=== PATIENT | female | born 1975 | race Caucasian/White ===

== ENCOUNTER 2017-05-22 16:15 | Emergency (ER) | payer OTHER ==
[2017-05-22 16:40] VITALS: BP 128/89; PULSE 95; RESP 18; TEMP 97.7
[2017-05-22] MEDS ORDERED: AMOXIC-POT CLAV 875MG STARTER 2 EACH TABLET PO STA (17:13)
[2017-05-22] MEDS ORDERED: DIPH,PERTUS(ACELL)TETVAC-LF 0.5 ML VIAL IM ONE (17:13)
--- NOTE | 2017-05-22 17:19 | ED ---
Animal Bite HPI - General Chief Complaint: Animal Bite Stated Complaint: Dog Bite Time Seen by Provider: 05/22/17 17:07 Source: patient, RN notes reviewed, old records reviewed Mode of arrival: ambulatory Limitations: no limitations - History of Present Illness Initial Comments: 41-year-old female presenting to emergency Department chief complaint of a dog bite to the left lower calf. She reports that it was a acquaintance's dog. She reports that it was a beagle terrier mix. She states that the dog bit through her scrub pants and into the back of her calf. She reports that she had some bleeding at the site but the bleeding is well-controlled at this time. She does not know the status of her tetanus vaccination. She currently is trying to find out if the dog was up-to-date on rabies vaccinations. Patient denies any pain with flexion or extension of the leg. She has been able to bear weight on it.Patient denies any recent fever, chills, shortness of breath, chest pain, back pain, abdominal pain, nausea vomiting, numbness or tingling, dysuria or hematuria, constipation or diarrhea, headaches or visual changes, or any other current symptoms. - Related Data Home Medications Medication Instructions Recorded Confirmed Amitriptyline HCl 25 mg PO DAILY 09/03/16 09/06/16 Aspirin [Adult Low Dose Aspirin EC] 81 mg PO DAILY 09/03/16 09/06/16 Cetirizine HCl 10 mg PO DAILY 09/03/16 09/06/16 Dextroamphetamine/Amphetamine 25 mg PO QAM 09/03/16 09/06/16 [Adderall Xr] Diazepam [Valium] 10 mg PO TID 09/03/16 09/06/16 Dicyclomine [Bentyl] 10 mg PO QID 09/03/16 09/06/16 Diphenoxylate HCl/Atropine 1 tab PO QID PRN 09/03/16 09/06/16 [Lomotil] Gabapentin [Neurontin] 300 mg PO TID 09/03/16 09/06/16 HYDROcodone/APAP 7.5-325MG [[place] 1 tab PO TID 09/03/16 09/06/16 7.5-325] Montelukast [Singulair] 10 mg PO DAILY 09/03/16 09/06/16 Omeprazole [PriLOSEC] 20 mg PO DAILY 09/03/16 09/06/16 Previous Rx's Medication Instructions Recorded Amoxic-Pot Clav 875-125Mg 1 tab PO Q12HR #20 tablet 05/22/17 [Augmentin 875-125] Allergies Allergy/AdvReac Type Severity Reaction Status Date / Time codeine Allergy Nausea & Verified 09/03/16 12:35 Vomiting Review of Systems ROS Statement: Those systems with pertinent positive or pertinent negative responses have been documented in the HPI. ROS Other: All systems not noted in ROS Statement are negative. Past Medical History Past Medical History: GERD/Reflux Additional Past Medical History / Comment(s): pain lower back History of Any Multi-Drug Resistant Organisms: None Reported, C-DIFF Date of last positivie culture/infection: 2015 Past Surgical History: Section, Hysterectomy Past Anesthesia/Blood Transfusion Reactions: No Reported Reaction Past Psychological History: ADD/ADHD Smoking Status: Current every day smoker Past Alcohol Use History: Rare Past Drug Use History: Marijuana - Past Family History Father Family Medical History: Cancer Additional Family Medical History / Comment(s): colon General Exam - General Exam Comments Initial Comments: 41-year-old female. No acute distress. Limitations: no limitations General appearance: alert, in no apparent distress Head exam: Present: atraumatic, normocephalic, normal inspection Eye exam: Present: normal appearance, PERRL, EOMI. Absent: scleral icterus, conjunctival injection, periorbital swelling ENT exam: Present: normal exam, mucous membranes moist Neck exam: Present: normal inspection. Absent: tenderness, meningismus, lymphadenopathy Respiratory exam: Present: normal lung sounds bilaterally. Absent: respiratory distress, wheezes, rales, rhonchi, stridor Cardiovascular Exam: Present: regular rate, normal rhythm, normal heart sounds. Absent: systolic murmur, diastolic murmur, rubs, gallop, clicks GI/Abdominal exam: Present: soft, normal bowel sounds. Absent: distended, tenderness, guarding, rebound, rigid Extremities exam: Present: normal inspection, full ROM, normal capillary refill. Absent: tenderness, pedal edema, joint swelling, calf tenderness Left Knee exam: Present: normal inspection, full ROM Lower Leg exam: Present: abrasion (Patient has approximately 5 small puncture wounds consistent with where the dog bite occurred over the medial lower calf. bleeding is well controlled.). Absent: normal inspection Ankle exam: Present: normal inspection, full ROM Foot/Toe exam: Present: normal inspection, full ROM Neurovascular tendon exam: Present: no vascular compromise Gait: observed and normal Back exam: Present: normal inspection Neurological exam: Present: alert, oriented X3, CN II-XII intact Psychiatric exam: Present: normal affect, normal mood Skin exam: Present: warm, dry, intact, normal color. Absent: rash Course Vital Signs 05/22/17 16:36 Temperature 97.7 F Pulse Rate 95 Respiratory 18 Rate Blood Pressure 128/89 O2 Sat by Pulse 98 Oximetry Medical Decision Making - Medical Decision Making 41-year-old female presenting to emergency Department chief complaint of a dog bite to the left lower calf. She reports that it was a acquaintance's dog. She reports that it was a beagle terrier mix. She states that the dog bit through her scrub pants and into the back of her calf. She reports that she had some bleeding at the site but the bleeding is well-controlled at this time. She does not know the status of her tetanus vaccination. She currently is trying to find out if the dog was up-to-date on rabies vaccinations. Patient denies any pain with flexion or extension of the leg. Patient has 4 small puncture wounds to the medial posterior calf. Patient wound was thoroughly cleaned and placed with a bacitracin dressing. Patient be started on Augmentin and given a starter pack in the emergency department. She also was given an updated tetanus shot. She reports she wants rabies prophylaxis. I discussed that this is not 100% necessary, given that the dog is domesticated and could be monitored, however patient continued to want rabies prophylaxis. 8.8 cc of rabies IG was infiltrated around the site of the bite. And rabies vaccine deliverd IM in deltoid. Patient will be given a prescription for augmentin and prescription to complete rabies prophylaxis outpatiently. Return parameters discussed. Disposition Clinical Impression: Dog bite Disposition: HOME SELF-CARE Condition: Good Instructions: Animal Bite (ED) Additional Instructions: is advised to finish the radiate prescription. Take antibiotics as directed. Return if there is any alarming signs or symptoms occur. Prescriptions: Amoxic-Pot Clav 875-125Mg [Augmentin 875-125] 1 tab PO Q12HR #20 tablet Referrals: Rodney Kim MD [Primary Care Provider] - 1-2 days Time of Disposition: 18:34
[2017-05-22] MEDS ORDERED: RABIES VACCINE (PCEC) 2.5 UNIT KIT IM ONE (17:38)
[2017-05-22] MEDS ORDERED: RABIES IMMUNE GLOB 150 UNIT/ML 10 ML VIAL IM ONE (17:39)
== END 2017-05-22 19:22 | disposition home or self-care (01) ==
LOC: EC 16:15
DX: S81.852A Open bite, left lower leg, initial encounter (principal); K21.9 Gastro-esophageal reflux disease without esophagitis; F90.9 Attention-deficit hyperactivity disorder, unspecified type; F17.200 Nicotine dependence, unspecified, uncomplicated; Z79.82 Long term (current) use of aspirin; Z79.899 Other long term (current) drug therapy; Z88.5 Allergy status to narcotic agent; Z23 Encounter for immunization; W54.0XXA Bitten by dog, initial encounter
CPT/HCPCS: 90375; 90471; 90472; 90675; 90715; 96372; 99283

== ENCOUNTER 2018-05-19 08:56 | Emergency (ER) | payer OTHER ==
[2018-05-19 09:01] VITALS: RESP 18; TEMP 98
[2018-05-19] MEDS ORDERED: SODIUM CHLORIDE 0.9% 1,000 ML IV STA ×2 (09:21)
--- NOTE | 2018-05-19 09:35 | ED ---
Eye Problem HPI - General Chief complaint: Eye Problems Stated complaint: Dizziness Time Seen by Provider: 05/19/18 08:59 Source: patient, RN notes reviewed, old records reviewed Mode of arrival: EMS Limitations: no limitations - History of Present Illness Initial comments: This Patient is a 42-year-old female presents to the emergency department today chief complaint of an episode of double vision leading to bilateral vision loss that lasted approximately 5 minutes. Patient states that she was at work when this happened she was transferring a Patient. Patient is a nurse aide. Patient reports that she's had similar episodes like this in the past. 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 She had corrective surgery a few years ago. Patient states that she is supposed were glasses but normally has not had wear them over the past few months. She reports that she has no headache. She states that her were called EMS and when she was seen and evaluated by EPS her vision was slowly starting to return. She states that she has no headache at this time. No other signs of weakness. She reports that she is at her baseline. Patient states that she has no history of strokes. She denies any chest pain, shortness of breath, visual changes with this time, nausea, vomiting, fevers or chills. - Related Data Home Medications Medication Instructions Recorded Confirmed Aspirin [Adult Low Dose Aspirin EC] 81 mg PO DAILY 09/03/16 05/19/18 Cetirizine HCl 10 mg PO DAILY 09/03/16 05/19/18 Dextroamphetamine/Amphetamine 25 mg PO QAM 09/03/16 05/19/18 [Adderall Xr] Diazepam [Valium] 10 mg PO TID 09/03/16 05/19/18 Dicyclomine [Bentyl] 10 mg PO QID 09/03/16 05/19/18 Diphenoxylate HCl/Atropine 1 tab PO QID PRN 09/03/16 05/19/18 [Lomotil] Gabapentin [Neurontin] 300 mg PO TID 09/03/16 05/19/18 Montelukast [Singulair] 10 mg PO HS 09/03/16 05/19/18 Omeprazole [PriLOSEC] 20 mg PO BID 09/03/16 05/19/18 Amitriptyline HCl [Elavil] 25 mg PO HS 05/19/18 05/19/18 HYDROcodone/APAP 5-325MG [[place] 1 tab PO Q6H PRN 05/19/18 05/19/18 5-325] Ibuprofen [Motrin] 600 mg PO TID PRN 05/19/18 05/19/18 Allergies Allergy/AdvReac Type Severity Reaction Status Date / Time codeine Allergy Nausea & Verified 05/19/18 09:54 Vomiting Review of Systems ROS Statement: Those systems with pertinent positive or pertinent negative responses have been documented in the HPI. ROS Other: All systems not noted in ROS Statement are negative. Past Medical History Past Medical History: GERD/Reflux Additional Past Medical History / Comment(s): pain lower back History of Any Multi-Drug Resistant Organisms: C-DIFF Date of last positivie culture/infection: 2015 Past Surgical History: Section, Hysterectomy Past Anesthesia/Blood Transfusion Reactions: No Reported Reaction Past Psychological History: ADD/ADHD Smoking Status: Current every day smoker Past Alcohol Use History: Occasional Past Drug Use History: Marijuana - Past Family History Father Family Medical History: Cancer Additional Family Medical History / Comment(s): colon General Exam - General Exam Comments Initial Comments: 42-year-old female. Alert and oriented. Appears in no acute distress. Limitations: no limitations General appearance: alert, in no apparent distress Head exam: Present: atraumatic, normocephalic, normal inspection Eye exam: Present: normal appearance, PERRL, EOMI, nystagmus (Patient does have some horizontal diagnosis left lateral gaze.). Absent: scleral icterus, conjunctival injection, periorbital swelling ENT exam: Present: normal exam, normal oropharynx, mucous membranes moist Neck exam: Present: normal inspection, full ROM. Absent: tenderness, meningismus, lymphadenopathy Respiratory exam: Present: normal lung sounds bilaterally. Absent: respiratory distress, wheezes, rales, rhonchi, stridor Cardiovascular Exam: Present: regular rate, normal rhythm, normal heart sounds. Absent: systolic murmur, diastolic murmur, rubs, gallop, clicks GI/Abdominal exam: Present: soft, normal bowel sounds. Absent: distended, tenderness, guarding, rebound, rigid Extremities exam: Present: normal inspection, full ROM, normal capillary refill. Absent: tenderness, pedal edema, joint swelling, calf tenderness Back exam: Present: normal inspection Neurological exam: Present: alert, oriented X3, CN II-XII intact Expanded Patient oriented to: Present: person, place, time Speech: Present: fluid speech Cranial nerves: EOM's Intact: Abnormal Left (evidence of bilateral nystagmus on Left and Right lateral gaze. ), Nystagmus: Abnormal Right, Facial Sensation: Normal Cerebellar function: Finger to Nose: Normal Upper motor neuron: Pronator Drift: Normal Sensory exam: Upper Extremity Light Touch: Normal, Lower Extremity Light Touch: Normal Motor strength exam: RUE: 5, LUE: 5, RLE: 5, LLE: 5 Eye Response: (4) open spontaneously Motor Response: (6) obeys commands Verbal Response: (5) oriented Maik Total: 15 Psychiatric exam: Present: normal affect, normal mood Skin exam: Present: warm, dry, intact, normal color. Absent: rash Course Vital Signs 05/19/18 05/19/18 08:57 11:53 Temperature 98.0 F Pulse Rate 84 65 Respiratory 18 18 Rate Blood Pressure 114/71 124/80 O2 Sat by Pulse 98 97 Oximetry - Reevaluation(s) Reevaluation #1: 05/19/18 11:49 Oscar is quite adamant about leaving. Patient states that she understands the risk of stroke and severe neurological deficits. She will be signing against medical translator. Medical Decision Making - Medical Decision Making 42-year-old female presents emergency department today with an episode of complete blindness in both of her eyes when she was at work. It lasted 5 minutes and slowly returned. She right ear via EMS. She states upon arriving here she felt so much better. She denied any specific headache chest pain first breath. No history of stroke. TIA protocol was completed. Patient given aspirin and blood work was obtained. Blood work was negative for any acute or maladies. EKG shows no significant changes. CT brain was completed and negative for any acute changes. No evidence of stroke. At this time I discussed that like to admit the Patient for TIA evaluation. Further evaluation by her neurologist Dr. Carter and campus executive director. She states that her vision is returning that she feels well. She states that she wants to be discharged home. This time Patient will sign out AMA. - Lab Data Result diagrams: 05/19/18 10:11 05/19/18 10:11 Lab Results 05/19/18 05/19/18 05/19/18 Range/Units 10:11 10:11 10:11 WBC 8.3 (3.8-10.6) k/uL RBC 3.75 L (3.80-5.40) m/uL Hgb 12.0 (11.4-16.0) gm/dL Hct 36.9 (34.0-46.0) % MCV 98.4 (80.0-100.0) fL MCH 32.0 (25.0-35.0) pg MCHC 32.5 (31.0-37.0) g/dL RDW 13.4 (11.5-15.5) % Plt Count 326 (150-450) k/uL Neutrophils % 76 % Lymphocytes % 16 % Monocytes % 5 % Eosinophils % 2 % Basophils % 0 % Neutrophils # 6.3 (1.3-7.7) k/uL Lymphocytes # 1.3 (1.0-4.8) k/uL Monocytes # 0.4 (0-1.0) k/uL Eosinophils # 0.2 (0-0.7) k/uL Basophils # 0.0 (0-0.2) k/uL PT (9.0-12.0) sec INR (<1.2) APTT (22.0-30.0) sec Sodium 138 (137-145) mmol/L Potassium 4.2 (3.5-5.1) mmol/L Chloride 108 H (98-107) mmol/L Carbon Dioxide 25 (22-30) mmol/L Anion Gap 5 mmol/L BUN 10 (7-17) mg/dL Creatinine 0.59 (0.52-1.04) mg/dL Est GFR (CKD-EPI)AfAm >90 (>60 ml/min/1.73 sqM) Est GFR (CKD-EPI)NonAf >90 (>60 ml/min/1.73 sqM) Glucose 104 H (74-99) mg/dL Calcium 8.4 (8.4-10.2) mg/dL Total Bilirubin 0.2 (0.2-1.3) mg/dL AST 77 H (14-36) U/L ALT 85 H (9-52) U/L Alkaline Phosphatase 75 (38-126) U/L Total Creatine Kinase 106 (30-135) U/L CK-MB (CK-2) 2.0 (0.0-2.4) ng/mL CK-MB (CK-2) Rel Index 1.9 Troponin I <0.012 (0.000-0.034) ng/mL Total Protein 5.5 L (6.3-8.2) g/dL Albumin 3.4 L (3.5-5.0) g/dL Urine Color Urine Appearance (Clear) Urine pH (5.0-8.0) Ur Specific [place] (1.001-1.035) Urine Protein (Negative) Urine Glucose (UA) (Negative) Urine Ketones (Negative) Urine Blood (Negative) Urine Nitrite (Negative) Urine Bilirubin (Negative) Urine Urobilinogen (<2.0) mg/dL Ur Leukocyte Esterase (Negative) 05/19/18 05/19/18 Range/Units 10:11 10:11 WBC (3.8-10.6) k/uL RBC (3.80-5.40) m/uL Hgb (11.4-16.0) gm/dL Hct (34.0-46.0) % MCV (80.0-100.0) fL MCH (25.0-35.0) pg MCHC (31.0-37.0) g/dL RDW (11.5-15.5) % Plt Count (150-450) k/uL Neutrophils % % Lymphocytes % % Monocytes % % Eosinophils % % Basophils % % Neutrophils # (1.3-7.7) k/uL Lymphocytes # (1.0-4.8) k/uL Monocytes # (0-1.0) k/uL Eosinophils # (0-0.7) k/uL Basophils # (0-0.2) k/uL PT 9.5 (9.0-12.0) sec INR 1.0 (<1.2) APTT 25.0 (22.0-30.0) sec Sodium (137-145) mmol/L Potassium (3.5-5.1) mmol/L Chloride (98-107) mmol/L Carbon Dioxide (22-30) mmol/L Anion Gap mmol/L BUN (7-17) mg/dL Creatinine (0.52-1.04) mg/dL Est GFR (CKD-EPI)AfAm (>60 ml/min/1.73 sqM) Est GFR (CKD-EPI)NonAf (>60 ml/min/1.73 sqM) Glucose (74-99) mg/dL Calcium (8.4-10.2) mg/dL Total Bilirubin (0.2-1.3) mg/dL AST (14-36) U/L ALT (9-52) U/L Alkaline Phosphatase (38-126) U/L Total Creatine Kinase (30-135) U/L CK-MB (CK-2) (0.0-2.4) ng/mL CK-MB (CK-2) Rel Index Troponin I (0.000-0.034) ng/mL Total Protein (6.3-8.2) g/dL Albumin (3.5-5.0) g/dL Urine Color Colorless Urine Appearance Clear (Clear) Urine pH 5.5 (5.0-8.0) Ur Specific [place] 1.003 (1.001-1.035) Urine Protein Negative (Negative) Urine Glucose (UA) Negative (Negative) Urine Ketones Negative (Negative) Urine Blood Negative (Negative) Urine Nitrite Negative (Negative) Urine Bilirubin Negative (Negative) Urine Urobilinogen <2.0 (<2.0) mg/dL Ur Leukocyte Esterase Negative (Negative) 05/19/18 09:38 EKG performed at 936 shows normal sinus rhythm. Normal EKG. Retrograde 70 bpm. Pulse 152 ms. QRS ration 84 ms. QT QTc is 46/438 ms. - Radiology Data Radiology results: report reviewed CT of the brain is negative for any acute intracranial hemorrhage, mass effect or midline shift. No acute injury cranial process. Chest x-rays negative for any acute cardiopulmonary process. No significant change from prior. Disposition Clinical Impression: Blindness of both eyes Disposition: Left Against Medical Advice Condition: Stable Is patient prescribed a controlled substance at d/c from ED?: No When asked, does pt state using other controlled substances?: No If prescribed controlled substance>3 days was MAPS reviewed?: No If opioid is for acute pain is fill amount 7 days or less?: No If Rx opioid, was Start Talking consent form obtained?: No Referrals: Rodney Kim MD [Primary Care Provider] - 1-2 days Time of Disposition: 11:49
--- NOTE | 2018-05-19 09:57 | CT ---
EXAMINATION TYPE: CT brain wo con DATE OF EXAM: 05/19/2018 COMPARISON: MRI brain dated 10/02/[address] brain dated 09/24/2012 HISTORY: Patient complains of syncopal episode and dizziness. CT DLP: 1017 mGycm. Automated Exposure Control for Dose Reduction was Utilized. TECHNIQUE: CT scan of the head is performed without contrast. FINDINGS: There is no acute intracranial hemorrhage, mass effect, or midline shift identified. No s uspicious extra-axial fluid collection. Normal variant cavum septum pellucidum is seen. The ventricle s and sulci are within normal limits in size. The globes are intact and the visualized sinuses are c lear. Mastoid air cells are well aerated. IMPRESSION: No acute intracranial hemorrhage, mass effect, or midline shift is seen. No acute intrac ranial process.
--- NOTE | 2018-05-19 09:57 | XR ---
EXAMINATION TYPE: XR chest 2V DATE OF EXAM: 05/19/2018 COMPARISON: Chest x-ray December 04, 2013 HISTORY: Altered mental status and weakness. TECHNIQUE: Frontal and lateral views of the chest are obtained. FINDINGS: There is no focal air space opacity, pleural effusion, or pneumothorax seen. The cardiac silhouette size is within normal limits. The osseous structures are intact. IMPRESSION: No acute cardiopulmonary process. No significant change from prior.
[2018-05-19] MEDS ORDERED: ASPIRIN 81 MG PO STA (10:01)
[2018-05-19 10:25] LABS: Basophils % (A) 0 %; Eosinophils # (A) 0.2 k/uL (0-0.7); Eosinophils % (A) 2 %; HCT 36.9 % (34.0-46.0); Lymphocytes # (A) 1.3 k/uL (1.0-4.8); Lymphocytes % (A) 16 %; MCHC 32.5 g/dL (31.0-37.0); MCV 98.4 fL (80.0-100.0); Mean Platelet Volume 7.2; Monocytes # (A) 0.4 k/uL (0-1.0); Monocytes % (A) 5 %; Neutrophils # (A) 6.3 k/uL (1.3-7.7); Neutrophils % (A) 76 %; Platelet Count 326 k/uL (150-450); RBC 3.75 m/uL (3.80-5.40); RDW 13.4 % (11.5-15.5); WBC 8.3 k/uL (3.8-10.6)
[2018-05-19 10:31] LABS: Appearance,Urine Clear (Clear); Bilirubin,Urine Negative (Negative); Blood,Urine Negative (Negative); Color,Urine Colorless; Glucose,Urine (UA) Negative (Negative); Ketones,Urine Negative (Negative); Leukocyte Esterase,Urine Negative (Negative); Nitrite,Urine Negative (Negative); PH, Urine 5.5 (5.0-8.0); Protein,Urine Negative (Negative); Specific Gravity,Urine 1.003 (1.001-1.035); Urobilinogen,Urine <2.0 mg/dL (<2.0)
[2018-05-19 10:33] LABS: ALT 85 U/L (9-52); AST 77 U/L (14-36); Albumin 3.4 g/dL (3.5-5.0); Alkaline Phosphatase 75 U/L (38-126); Anion Gap 5 mmol/L; Blood Urea Nitrogen 10 mg/dL (7-17); Calcium 8.4 mg/dL (8.4-10.2); Carbon Dioxide 25 mmol/L (22-30); Chloride 108 mmol/L (98-107); Glucose 104 mg/dL (74-99); Potassium 4.2 mmol/L (3.5-5.1); Prothrombin Time 9.5 sec (9.0-12.0); Sodium 138 mmol/L (137-145); Total Bilirubin 0.2 mg/dL (0.2-1.3); Total Protein 5.5 g/dL (6.3-8.2)
[2018-05-19 11:10] LABS: Creatine Kinase 106 U/L (30-135)
[2018-05-19 11:23] LABS: Troponin I <0.012 ng/mL (0.000-0.034)
[2018-05-19 11:55] VITALS: BP 124/80; PULSE 65
== END 2018-05-19 11:53 | disposition left against medical advice (07) ==
LOC: EC 08:56
DX: H54.3 Unqualified visual loss, both eyes (principal); H55.09 Other forms of nystagmus; K21.9 Gastro-esophageal reflux disease without esophagitis; F90.9 Attention-deficit hyperactivity disorder, unspecified type; F17.200 Nicotine dependence, unspecified, uncomplicated; Z79.82 Long term (current) use of aspirin; Z79.899 Other long term (current) drug therapy; Z88.5 Allergy status to narcotic agent
CPT/HCPCS: 36415; 70450; 71046; 80053; 81003; 82550; 82553; 84484; 85025; 85610; 85730; 93005; 96360; 96361; 99285

== ENCOUNTER 2023-06-30 06:57 | Emergency (ER) | payer OTHER ==
[2023-06-30] MEDS ORDERED: diphenhydrAMINE 50 MG/ML 1 ML VIAL IVP STA (07:17)
[2023-06-30] MEDS ORDERED: SODIUM CHLORIDE 0.9% 1,000 ML IV STA (07:17)
[2023-06-30] MEDS ORDERED: SODIUM CHLORIDE 0.9% 500 ML 500 ML IV STA (07:17)
[2023-06-30] MEDS ORDERED: METOCLOPRAMIDE 5 MG/ML 2 ML VIAL IVP STA (07:17)
[2023-06-30] MEDS ORDERED: KETOROLAC 15 MG/ML 1 ML VIAL IVP STA ×2 (07:18→10:21)
--- NOTE | 2023-06-30 07:20 | ED ---
General Adult HPI - General Chief complaint: Nausea/Vomiting/Diarrhea Stated complaint: Vomiting, Cough Time Seen by Provider: 06/30/23 07:05 Source: patient, RN notes reviewed Mode of arrival: ambulatory Limitations: no limitations - History of Present Illness Initial comments: 47 year old female presents emergency apartment chief complaint of nausea vo miting, cough congestion. Patient states that symptoms started on Tuesday initially with nausea and vomiting. Patient states that slowly progress states that she's been waking up every morning with some her symptoms. Patient states that she does have cough that seems to be associated. She does with hot and cold flashes but denies any reported fever. Patient denies chest pain, shortness breath, flank pain, back pain or any dysuria. Patient's had no sick contacts patient offers no other associated symptoms. - Related Data Home Medications Medication Instructions Recorded Confirmed Dicyclomine [Bentyl] 10 - 20 mg PO DIRECTED PRN 09/03/16 06/30/23 Diphenoxylate HCl/Atropine 1 tab PO DIRECTED PRN 09/03/16 06/30/23 [Lomotil] Previous Rx's Medication Instructions Recorded Ondansetron Odt [Zofran Odt] 4 mg PO Q8HR PRN #10 tab 06/30/23 Allergies Allergy/AdvReac Type Severity Reaction Status Date / Time codeine Allergy Nausea & Verified 06/30/23 09:39 Vomiting Review of Systems ROS Statement: Those systems with pertinent positive or pertinent negative responses have been documented in the HPI. ROS Other: All systems not noted in ROS Statement are negative. Past Medical History Past Medical History: GERD/Reflux Additional Past Medical History / Comment(s): pain lower back History of Any Multi-Drug Resistant Organisms: C-DIFF Date of last positivie culture/infection: 2015 Past Surgical History: Section, Hysterectomy Past Anesthesia/Blood Transfusion Reactions: No Reported Reaction Past Psychological History: ADD/ADHD Smoking Status: Current every day smoker Past Alcohol Use History: Occasional Past Drug Use History: Marijuana - Past Family History Father Family Medical History: Cancer Additional Family Medical History / Comment(s): colon General Exam Limitations: no limitations General appearance: alert, in no apparent distress Head exam: Present: atraumatic, normocephalic, normal inspection Eye exam: Present: normal appearance, PERRL, EOMI. Absent: scleral icterus, conjunctival injection, periorbital swelling ENT exam: Present: normal exam, normal oropharynx, mucous membranes moist Neck exam: Present: normal inspection, full ROM. Absent: tenderness, meningismus, lymphadenopathy Respiratory exam: Present: normal lung sounds bilaterally. Absent: respiratory distress, wheezes, rales, rhonchi, stridor Cardiovascular Exam: Present: regular rate, normal rhythm, normal heart sounds. Absent: systolic murmur, diastolic murmur, rubs, gallop, clicks GI/Abdominal exam: Present: soft, normal bowel sounds. Absent: distended, tenderness, guarding, rebound, rigid Course Vital Signs 06/30/23 06:59 Temperature 97.7 F Pulse Rate 71 Respiratory 18 Rate Blood Pressure 175/108 O2 Sat by Pulse 98 Oximetry Medical Decision Making - Medical Decision Making Was pt. sent in by a medical professional or institution (, PA, HUMAN RESOURCES HR GENERALIST, urgent care, hospital, or usp...) When possible be specific @ -No Did you speak to anyone other than the patient for history (EMS, parent, family, police, friend...)? What history was obtained from this source @ -No Did you review nursing and triage notes (agree or disagree)? Why? @ -I reviewed and agree with nursing and triage notes Were old charts reviewed (outside hosp., previous admission, EMS record, old EKG, old radiological studies, urgent care reports/EKG's, usp records)? Report findings @ -No old charts were reviewed Differential Diagnosis (chest pain, altered mental status, abdominal pain women, abdominal pain men, vaginal bleeding, weakness, fever, dyspnea, syncope, headache, dizziness, GI bleed, back pain, seizure, CVA, palpatations, mental health, musculoskeletal)? @ -Differential Abdominal Pain Women: Appendicitis, Cholecystitis, diverticulosis, ischemic bowel, pancreatitis, hepatitis, UTI, gastroenteritis, AAA, incarcerated hernia, bowel obstruction, constipation, inflammatory bowel, hepatitis, peptic ulcer disease, splenic infarction, perforated viscus, vulvitis, ovarian torsion, PID, kidney stone, placenta abruption, this is not meant to be an all-inclusive list EKG interpreted by me (3pts min.). @ -None X-rays interpreted by me (1pt min.). @ -None done CT interpreted by me (1pt min.). @ -None done U/S interpreted by me (1pt. min.). @ -None done What testing was considered but not performed or refused? (CT, X-rays, U/S, labs)? Why? @ -None What meds were considered but not given or refused? Why? @ -None Did you discuss the management of the patient with other professionals (professionals i.e. , PA, HUMAN RESOURCES HR GENERALIST, lab, RT, psych nurse, social insurance adviser, horse shoer, teacher, veterans service officer, case briefer)? Give summary @ -No Was smoking cessation discussed for >3mins.? @ -No Was critical care preformed (if so, how long)? @ -No Were there social determinants of health that impacted care today? How? (Homelessness, low income, unemployed, alcoholism, drug addiction, transportation, low edu. Level, literacy, decrease access to med. care, halfway, re hab)? @ -No Was there de-escalation of care discussed even if they declined (Discuss DNR or withdrawal of care, Hospice)? DNR status @ -No What co-morbidities impacted this encounter? (DM, HTN, Smoking, COPD, CAD, Cancer, CVA, ARF, Chemo, Hep., AIDS, mental health diagnosis, sleep apnea, morbid obesity)? @ -None Was patient admitted / discharged? Hospital course, mention meds given and route, prescriptions, significant lab abnormalities, going to OR and other pertinent info. @ -Discharge patient was hydrated, ultrasound is unremarkable. Patient's symptoms related to viral illness patient we discharged in stable condition return parameters were discussed. Undiagnosed new problem with uncertain prognosis? @ -[No] Drug Therapy requiring intensive monitoring for toxicity (Heparin, Nitro, Insulin, Cardizem)? @ -[No] Were any procedures done? @ -[No] Diagnosis/symptom? @ -[Gastroenteritis] Acute, or Chronic, or Acute on Chronic? @ -[Acute] Uncomplicated (without systemic symptoms) or Complicated (systemic symptoms)? @ -[Uncomplicated] Side effects of treatment? @ -[No] Exacerbation, Progression, or Severe Exacerbation? @ -[No] Poses a threat to life or bodily function? How? (Chest pain, USA, [place], pneumonia, PE, COPD, DKA, ARF, appy, cholecystitis, CVA, Diverticulitis, Homicidal, Suicidal, threat to staff... and all critical care pts) @ -[No] - Lab Data Result diagrams: 06/30/23 07:20 06/30/23 07:20 Lab Results 06/30/23 06/30/23 06/30/23 Range/Units 07:20 07:20 07:42 WBC 10.7 H (3.8-10.6) k/uL RBC 4.57 (3.80-5.40) m/uL Hgb 15.4 (11.4-16.0) gm/dL Hct 44.7 (34.0-46.0) % MCV 97.9 (80.0-100.0) fL MCH 33.8 (25.0-35.0) pg MCHC 34.6 (31.0-37.0) g/dL RDW 12.9 (11.5-15.5) % Plt Count 324 (150-450) k/uL MPV 8.1 Neutrophils % 83 % Lymphocytes % 10 % Monocytes % 6 % Eosinophils % 0 % Basophils % 0 % Neutrophils # 8.8 H (1.3-7.7) k/uL Lymphocytes # 1.0 (1.0-4.8) k/uL Monocytes # 0.7 (0-1.0) k/uL Eosinophils # 0.0 (0-0.7) k/uL Basophils # 0.0 (0-0.2) k/uL Sodium 139 (137-145) mmol/L Potassium 3.6 (3.5-5.1) mmol/L Chloride 106 (98-107) mmol/L Carbon Dioxide 23 (22-30) mmol/L Anion Gap 10 mmol/L BUN 3 L (7-17) mg/dL Creatinine 0.47 L (0.52-1.04) mg/dL Est GFR (CKD-EPI)AfAm >90 (>60 ml/min/1.73 sqM) Est GFR (CKD-EPI)NonAf >90 (>60 ml/min/1.73 sqM) Glucose 103 H (74-99) mg/dL Calcium 8.9 (8.4-10.2) mg/dL Total Bilirubin 0.5 (0.2-1.3) mg/dL AST 30 (14-36) U/L ALT 15 (4-34) U/L Alkaline Phosphatase 71 (38-126) U/L Total Protein 7.8 (6.3-8.2) g/dL Albumin 4.4 (3.5-5.0) g/dL Lipase 53 (23-300) U/L Urine Color Urine Appearance (Clear) Urine pH (5.0-8.0) Ur Specific [place] (1.001-1.035) Urine Protein (Negative) Urine Glucose (UA) (Negative) Urine Ketones (Negative) Urine Blood (Negative) Urine Nitrite (Negative) Urine Bilirubin (Negative) Urine Urobilinogen (<2.0) mg/dL Ur Leukocyte Esterase (Negative) Urine RBC (0-5) /hpf Urine WBC (0-5) /hpf Ur Squamous Epith Cells (0-4) /hpf Amorphous Sediment (None) /hpf Urine Bacteria (None) /hpf Urine Mucus (None) /hpf Influenza Type A (PCR) Not Detected (Not Detectd) Influenza Type B (PCR) Not Detected (Not Detectd) RSV (PCR) Not Detected (Not Detectd) SARS-CoV-2 (PCR) Not Detected (Not Detectd) 06/30/23 Range/Units 08:40 WBC (3.8-10.6) k/uL RBC (3.80-5.40) m/uL Hgb (11.4-16.0) gm/dL Hct (34.0-46.0) % MCV (80.0-100.0) fL MCH (25.0-35.0) pg MCHC (31.0-37.0) g/dL RDW (11.5-15.5) % Plt Count (150-450) k/uL MPV Neutrophils % % Lymphocytes % % Monocytes % % Eosinophils % % Basophils % % Neutrophils # (1.3-7.7) k/uL Lymphocytes # (1.0-4.8) k/uL Monocytes # (0-1.0) k/uL Eosinophils # (0-0.7) k/uL Basophils # (0-0.2) k/uL Sodium (137-145) mmol/L Potassium (3.5-5.1) mmol/L Chloride (98-107) mmol/L Carbon Dioxide (22-30) mmol/L Anion Gap mmol/L BUN (7-17) mg/dL Creatinine (0.52-1.04) mg/dL Est GFR (CKD-EPI)AfAm (>60 ml/min/1.73 sqM) Est GFR (CKD-EPI)NonAf (>60 ml/min/1.73 sqM) Glucose (74-99) mg/dL Calcium (8.4-10.2) mg/dL Total Bilirubin (0.2-1.3) mg/dL AST (14-36) U/L ALT (4-34) U/L Alkaline Phosphatase (38-126) U/L Total Protein (6.3-8.2) g/dL Albumin (3.5-5.0) g/dL Lipase (23-300) U/L Urine Color Colorless Urine Appearance Clear (Clear) Urine pH 6.5 (5.0-8.0) Ur Specific [place] 1.009 (1.001-1.035) Urine Protein Trace H (Negative) Urine Glucose (UA) Negative (Negative) Urine Ketones Negative (Negative) Urine Blood Small H (Negative) Urine Nitrite Negative (Negative) Urine Bilirubin Negative (Negative) Urine Urobilinogen <2.0 (<2.0) mg/dL Ur Leukocyte Esterase Negative (Negative) Urine RBC 4 (0-5) /hpf Urine WBC 1 (0-5) /hpf Ur Squamous Epith Cells 3 (0-4) /hpf Amorphous Sediment Rare H (None) /hpf Urine Bacteria Rare H (None) /hpf Urine Mucus Rare H (None) /hpf Influenza Type A (PCR) (Not Detectd) Influenza Type B (PCR) (Not Detectd) RSV (PCR) (Not Detectd) SARS-CoV-2 (PCR) (Not Detectd) Disposition Clinical Impression: Gastroenteritis Disposition: HOME SELF-CARE Condition: Stable Instructions (If sedation given, give patient instructions): Acute Nausea and Vomiting (ED) Additional Instructions: Please return to the Emergency Department if symptoms worsen or any other concerns. Prescriptions: Ondansetron Odt [Zofran Odt] 4 mg PO Q8HR PRN #10 tab PRN Reason: Nausea Is patient prescribed a controlled substance at d/c from ED?: No Referrals: Nilam Perdue FNPBC [Primary Care Provider] - 1-2 days Time of Disposition: 10:17
[2023-06-30 08:01] LABS: Basophils % (A) 0 %; Eosinophils % (A) 0 %; HCT 44.7 % (34.0-46.0); HGB 15.4 gm/dL (11.4-16.0); Lymphocytes % (A) 10 %; MCH 33.8 pg (25.0-35.0); MCHC 34.6 g/dL (31.0-37.0); MCV 97.9 fL (80.0-100.0); Mean Platelet Volume 8.1; Monocytes # (A) 0.7 k/uL (0-1.0); Monocytes % (A) 6 %; Neutrophils # (A) 8.8 k/uL (1.3-7.7); Neutrophils % (A) 83 %; Platelet Count 324 k/uL (150-450); RBC 4.57 m/uL (3.80-5.40); RDW 12.9 % (11.5-15.5); WBC 10.7 k/uL (3.8-10.6)
[2023-06-30 09:13] LABS: Amorphous Sediment,Urine Rare /hpf; Appearance,Urine Clear (Clear); Bacteria,Urine Rare /hpf; Bilirubin,Urine Negative (Negative); Blood,Urine Small (Negative); Color,Urine Colorless; Glucose,Urine (UA) Negative (Negative); Ketones,Urine Negative (Negative); Leukocyte Esterase,Urine Negative (Negative); Mucus,Urine Rare /hpf; Nitrite,Urine Negative (Negative); PH, Urine 6.5 (5.0-8.0); Protein,Urine Trace (Negative); RBC,Urine 4 /hpf (0-5); Specific Gravity,Urine 1.009 (1.001-1.035); Squamous Epithelial Cell,Urine 3 /hpf (0-4); Urobilinogen,Urine <2.0 mg/dL (<2.0); WBC,Urine 1 /hpf (0-5)
[2023-06-30 10:07] LABS: ALT 15 U/L (4-34); AST 30 U/L (14-36); African American GFR (CKD) >90 (>60 ml/min/1.73 sqM); Albumin 4.4 g/dL (3.5-5.0); Alkaline Phosphatase 71 U/L (38-126); Anion Gap 10 mmol/L; Blood Urea Nitrogen 3 mg/dL (7-17); Calcium 8.9 mg/dL (8.4-10.2); Carbon Dioxide 23 mmol/L (22-30); Chloride 106 mmol/L (98-107); Glucose 103 mg/dL (74-99); Lipase 53 U/L (23-300); Non-African American GFR(CKD) >90 (>60 ml/min/1.73 sqM); Potassium 3.6 mmol/L (3.5-5.1); Sodium 139 mmol/L (137-145); Total Bilirubin 0.5 mg/dL (0.2-1.3); Total Protein 7.8 g/dL (6.3-8.2)
[2023-06-30] MEDS ORDERED: ONDANSETRON 4 MG/2 ML VIAL IVP STA (10:21)
[2023-06-30 11:19] VITALS: BP 160/76; PULSE 70; RESP 16; TEMP 98.9
== END 2023-06-30 11:19 | disposition home or self-care (01) ==
LOC: EC 06:57
DX: K52.9 Noninfective gastroenteritis and colitis, unspecified (principal); F17.200 Nicotine dependence, unspecified, uncomplicated; F12.90 Cannabis use, unspecified, uncomplicated; Z20.822 Contact with and (suspected) exposure to COVID-19
CPT/HCPCS: 36415; 80053; 83690; 85025; 81001; 87636; 99284; 96374; 96375 ×3; 96376; 96361; J1200; J2765; J2405; J1885

== ENCOUNTER 2024-01-27 11:22 | Emergency (ER) | payer OTHER ==
[2024-01-27 12:15] VITALS: RESP 18
--- NOTE | 2024-01-27 12:19 | ED ---
General Adult HPI - General Chief complaint: Animal Bite Stated complaint: Animal Bite(Dog) Time Seen by Provider: 01/27/24 11:28 Source: patient, RN notes reviewed Mode of arrival: ambulatory Limitations: no limitations - History of Present Illness Initial comments: 48-year-old female presents to the emergency department for evaluation of dog bite to bilateral knees. Patient states that [place] [employer] [place] when a dog came running out of the hines. She states there was no electronics technician around. She reports that the dog bit both of her knees. She was wearing thin leggings but the dog did not bite through her pants. She had a rabies series about 7 years ago when she was bit by a dog. - Related Data Home Medications Medication Instructions Recorded Confirmed Dicyclomine [Bentyl] 10 - 20 mg PO DIRECTED PRN 09/03/16 06/30/23 Diphenoxylate HCl/Atropine 1 tab PO DIRECTED PRN 09/03/16 06/30/23 [Lomotil] Previous Rx's Medication Instructions Recorded Ondansetron Odt [Zofran Odt] 4 mg PO Q8HR PRN #10 tab 06/30/23 Amoxic-Pot Clav 875-125Mg 1 tab PO Q12HR #20 tab 01/27/24 [Augmentin 875-125] Allergies Allergy/AdvReac Type Severity Reaction Status Date / Time codeine Allergy Nausea & Verified 01/27/24 11:28 Vomiting Review of Systems ROS Statement: Those systems with pertinent positive or pertinent negative responses have been documented in the HPI. ROS Other: All systems not noted in ROS Statement are negative. Past Medical History Past Medical History: GERD/Reflux Additional Past Medical History / Comment(s): pain lower back History of Any Multi-Drug Resistant Organisms: C-DIFF Date of last positivie culture/infection: 2015 Past Surgical History: Section, Hysterectomy Past Anesthesia/Blood Transfusion Reactions: No Reported Reaction Past Psychological History: ADD/ADHD Smoking Status: Current every day smoker Past Alcohol Use History: Occasional Past Drug Use History: Marijuana - Past Family History Father Family Medical History: Cancer Additional Family Medical History / Comment(s): colon General Exam Limitations: no limitations General appearance: alert, in no apparent distress Head exam: Present: atraumatic, normocephalic, normal inspection Eye exam: Present: normal appearance, PERRL, EOMI. Absent: scleral icterus, conjunctival injection, periorbital swelling ENT exam: Present: normal exam, mucous membranes moist Respiratory exam: Present: normal lung sounds bilaterally. Absent: respiratory distress, wheezes, rales, rhonchi, stridor Cardiovascular Exam: Present: regular rate, normal rhythm, normal heart sounds. Absent: systolic murmur, diastolic murmur, rubs, gallop, clicks Extremities exam: Present: full ROM, normal capillary refill, other (ecchymosis to bilateral knees, skin tear to right lateral knee about 2 cm, puncture wound to left lateral knee). Absent: tenderness, pedal edema, joint swelling, calf tenderness Back exam: Present: normal inspection Neurological exam: Present: alert, oriented X3 Psychiatric exam: Present: normal affect, normal mood Skin exam: Present: warm, dry, other (ecchymosis to bilateral knees, skin tear to right lateral knee about 2 cm, puncture wound to left lateral knee). Absent: intact, normal color Course Vital Signs 01/27/24 11:26 Temperature 98 F Pulse Rate 72 Respiratory 18 Rate Blood Pressure 176/109 O2 Sat by Pulse 98 Oximetry Medical Decision Making - Medical Decision Making Was pt. sent in by a medical professional or institution (, PA, BOTTOM TURNING LATHE TURNER, urgent care, hospital, or [place] health [facility] facility...) When possible be specific @ -No Did you speak to anyone other than the patient for history (EMS, parent, family, police, friend...)? What history was obtained from this source @ -No Did you review nursing and triage notes (agree or disagree)? Why? @ -I reviewed and agree with nursing and triage notes Were old charts reviewed (outside hosp., previous admission, EMS record, old EKG, old radiological studies, urgent care reports/EKG's, [place] health [facility] facility records)? Report findings @ -No old charts were reviewed Differential Diagnosis (chest pain, altered mental status, abdominal pain women, abdominal pain men, vaginal bleeding, weakness, fever, dyspnea, syncope, headache, dizziness, GI bleed, back pain, seizure, CVA, palpatations, mental health, musculoskeletal)? @ -Dog bite, laceration, skin tear, this list is not all inclusive EKG interpreted by me (3pts min.). @ -None X-rays interpreted by me (1pt min.). @ -None done CT interpreted by me (1pt min.). @ -None done U/S interpreted by me (1pt. min.). @ -None done What testing was considered but not performed or refused? (CT, X-rays, U/S, labs)? Why? @ -None What meds were considered but not given or refused? Why? @ -None Did you discuss the management of the patient with other professionals (professionals i.e. DrLudwin, PA, B[employer] TURNING [employer] TURNER, lab, RT, psych nurse, adoption social worker, business lawyer, teacher, weapons officer, manager rn case)? Give summary @ -No Was smoking cessation discussed for >3mins.? @ -No Was critical care preformed (if so, how long)? @ -No Were there social determinants of health that impacted care today? How? (Homelessness, low income, unemployed, alcoholism, drug addiction, transportation, low edu. Level, literacy, decrease access to med. care, detention, rehab)? @ -No Was there de-escalation of care discussed even if they declined (Discuss DNR or withdrawal of care, Hospice)? DNR status @ -No What co-morbidities impacted this encounter? (DM, HTN, Smoking, COPD, CAD, Cancer, CVA, ARF, Chemo, Hep., AIDS, mental health diagnosis, sleep apnea, morbid obesity)? @ -None Was patient admitted / discharged? Hospital course, mention meds given and route, prescriptions, significant lab abnormalities, going to OR and other pertinent info. @ -Discharged. Patient presented to the emergency department for evaluation of dog bite to her knees. Unknown dog while she was walking the trail. Paperwork sent to animal control. Tetanus vaccination updated. She received rabies booster shot. Advised needs another shot at day 3, written order for her to have this done. Wounds cleaned and dressed. Advised on wound care. Prescription also written for Augmentin. Patient understanding and agreeable with plan. Patient stable at time of discharge. Case discussed with Dr. Vargas. Undiagnosed new problem with uncertain prognosis? @ -No Drug Therapy requiring intensive monitoring for toxicity (Heparin, Nitro, Insulin, Cardizem)? @ -No Were any procedures done? @ -No Diagnosis/symptom? @ -Animal bite, rabies prophylaxis Acute, or Chronic, or Acute on Chronic? @ -Acute Uncomplicated (without systemic symptoms) or Complicated (systemic symptoms)? @ -Uncomplicated Side effects of treatment? @ -No Exacerbation, Progression, or Severe Exacerbation? @ -No Poses a threat to life or bodily function? How? (Chest pain, [place], [place], pneumonia, PE, COPD, DKA, ARF, appy, cholecystitis, CVA, Diverticulitis, Homicidal, Suicidal, threat to staff... and all critical care pts) @ -No Disposition Clinical Impression: Dog bite, Need for prophylactic vaccination against rabies Disposition: HOME SELF-CARE Condition: Stable Instructions (If sedation given, give patient instructions): Animal Bite (ED) Additional Instructions: Please keep wounds clean and dry. Take antibiotics to completion. Follow up for rabies vaccine on day 3. Return to the emergency department for new or worsening symptoms. Prescriptions: Amoxic-Pot Clav 875-125Mg [Augmentin 875-125] 1 tab PO Q12HR #20 tab Is patient prescribed a controlled substance at d/c from ED?: No Referrals: Tristan Hayes MD [Primary Care Provider] - 1-2 days
[2024-01-27] MEDS: AMOXIC-POT CLAV 875-125MG 1 EACH TAB PO STA (12:27)
[2024-01-27] MEDS: DIPH,PERTUS(ACELL)TETVAC-LF 0.5 ML VIAL IM ONE (12:28)
[2024-01-27] MEDS: RABIES VACCINE (PCEC) 2.5 UNIT KIT IM ONE (12:43)
[2024-01-27 12:53] VITALS: BP 156/80; PULSE 68; TEMP 97.9
== END 2024-01-27 12:50 | disposition home or self-care (01) ==
LOC: EC 11:22
DX: S81.052A Open bite, left knee, initial encounter (principal); S81.051A Open bite, right knee, initial encounter; F17.200 Nicotine dependence, unspecified, uncomplicated; Z20.3 Contact with and (suspected) exposure to rabies; Z23 Encounter for immunization; Z88.5 Allergy status to narcotic agent; W54.0XXA Bitten by dog, initial encounter; Y93.01 Activity, walking, marching and hiking
CPT/HCPCS: 90471; 90472; 90675; 90715; 99283